=== PATIENT | male | born 1960 | race Two or more races ===

== ENCOUNTER → 2019-12-07 | Outpatient (CLI) | payer OTHER ==
[2019-12-08 06:10] LABS: RUBEOLA (MEASLES) IGG >300.0 AU/mL (Immune >16.4)
== END | disposition home or self-care (01) ==
LOC: EMPHLTH 11:49
PROVIDERS: ATTEND Internal Medicine
DX: Z02.1 Encounter for pre-employment examination (principal)
CPT/HCPCS: 86706; 86735; 86762; 86765; 86787

== ENCOUNTER 2020-04-03 08:29 | Emergency (ER) | payer OTHER ==
[~2020-04-03] VITALS: Ht 167.6 cm; Wt 72.7 kg
[2020-04-03 08:54] VITALS: BP 185/113
[2020-04-03 09:29] LABS: COVID AG,FIA SOURCE NASOPHARYNGEAL
== END 2020-04-03 09:22 | disposition home or self-care (01) ==
LOC: EMS 08:29
DX: J02.9 Acute pharyngitis, unspecified (principal); R03.0 Elevated blood-pressure reading, without diagnosis of hypertension; R09.81 Nasal congestion; Z20.822 Contact with and (suspected) exposure to COVID-19
CPT/HCPCS: 87426; 99283; C9803; U0003

== ENCOUNTER → 2020-10-18 | Outpatient (CLI) | payer OTHER ==
[~2020-10-18] MED LIST: GADOBUTROL 1 MMOL/ML 10 ML VIAL IVP ONE
== END | disposition home or self-care (01) ==
LOC: RADPV 08:49
PROVIDERS: ATTEND Specialist
DX: S83.242A Other tear of medial meniscus, current injury, left knee, initial encounter (principal); S83.412A Sprain of medial collateral ligament of left knee, initial encounter; M71.22 Synovial cyst of popliteal space [Baker], left knee; M25.862 Other specified joint disorders, left knee; M23.92 Unspecified internal derangement of left knee; X58.XXXA Exposure to other specified factors, initial encounter; Y93.89 Activity, other specified; Y92.89 Other specified places as the place of occurrence of the external cause; Y99.8 Other external cause status
CPT/HCPCS: 73580; 73719; A9585

== ENCOUNTER 2022-02-15 16:04 | Emergency (ER) | payer OTHER ==
[~2022-02-15] VITALS: Ht 167.6 cm; Wt 70.5 kg
[2022-02-15] MEDS ORDERED: KETOROLAC TROMETHAMINE 30 MG/ML VIAL IM ONE (16:30)
[2022-02-15] MEDS ORDERED: KETOROLAC TROMETHAMINE 30 MG/ML VIAL IVP ONE (17:00)
[2022-02-15 18:14] VITALS: BP 118/75
== END 2022-02-15 18:16 | disposition home or self-care (01) ==
LOC: EMS 16:10
DX: S83.92XA Sprain of unspecified site of left knee, initial encounter (principal); F17.210 Nicotine dependence, cigarettes, uncomplicated; X58.XXXA Exposure to other specified factors, initial encounter; Y93.64 Activity, baseball; Y92.89 Other specified places as the place of occurrence of the external cause; Y99.8 Other external cause status
CPT/HCPCS: 99283; 96374; 73562; J1885

== ENCOUNTER 2022-10-15 10:49 | Emergency (ER) | payer OTHER ==
[~2022-10-15] VITALS: Ht 167.6 cm; Wt 72.7 kg
[2022-10-15 10:55] VITALS: TEMP 98
[2022-10-15] MEDS ORDERED: HYDR25TA2 PO (10:57)
[2022-10-15] MEDS ORDERED: LISI2.5T91 PO (10:57)
[2022-10-15] MEDS ORDERED: ATOR10TA PO (10:57)
[2022-10-15] MEDS ORDERED: IBUP-1492 PO (14:28)
[2022-10-15 14:39] VITALS: BP 133/69; PULSE 74; RESP 16
== END 2022-10-15 16:56 | disposition home or self-care (01) ==
LOC: EMS 10:50
DX: S16.1XXA Strain of muscle, fascia and tendon at neck level, initial encounter (principal); F17.210 Nicotine dependence, cigarettes, uncomplicated; V49.9XXA Car occupant (driver) (passenger) injured in unspecified traffic accident, initial encounter; Y93.89 Activity, other specified; Y92.89 Other specified places as the place of occurrence of the external cause; Y99.8 Other external cause status
CPT/HCPCS: 72125; 99284; Z7502

== ENCOUNTER 2022-12-18 06:59 | Day surgery (SDC) | payer OTHER ==
[~2022-12-18] VITALS: Ht 167.6 cm; Wt 72.7 kg
[~2022-12-18 06:59] MED LIST changes: +ATOR10TA PO; -GADOBUTROL 1 MMOL/ML 10 ML VIAL IVP ONE; +HYDR25TA2 PO; +IBUP-1492 PO; +LISI2.5T91 PO; +SODIUM CHLORIDE 0.9% 1,000 ML IV ONE; +SODIUM CHLORIDE 0.9% 1,000 ML ONE
[2022-12-18] MEDS ORDERED: ESCI-8 PO (07:33)
[2022-12-18] MEDS ORDERED: OMEP10 PO (07:33)
[2022-12-18] MEDS ORDERED: PROPOFOL 1% 20 ML VIAL IVP ONE (12:00)
[2022-12-18] MEDS ORDERED: LIDOCAINE/PF 2% 5 ML VIAL IM ONE (12:00)
== END 2022-12-18 09:45 | disposition home or self-care (01) ==
LOC: SURGERY 06:59
PROVIDERS: ATTEND Internal Medicine Gastroenterology
DX: K29.70 Gastritis, unspecified, without bleeding (principal); Z90.49 Acquired absence of other specified parts of digestive tract; Z98.890 Other specified postprocedural states; Z79.899 Other long term (current) drug therapy; Z82.49 Family history of ischemic heart disease and other diseases of the circulatory system
CPT/HCPCS: 43239; 88305; 88312; 88313; C1769; J2704; J3490; J7030